=== PATIENT | female | born 1955 | race Caucasian/White ===

== ENCOUNTER 2016-07-27 17:47 | Emergency (ER) | payer BC ==
[~2016-07-27] VITALS: Ht 157.5 cm; Wt 54.4 kg
[2016-07-27] MEDS ORDERED: NKM (18:10)
[2016-07-27] MEDS ORDERED: CYCLOBENZAPRINE10 MG ORAL (18:21)
[2016-07-27] MEDS ORDERED: IBUPROFEN600 MG ORAL (18:21)
[2016-07-27 18:32] VITALS: BP 119/72
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
== END 2016-07-27 18:46 | disposition home or self-care (01) ==
LOC: EMR 18:25
DX: S16.1XXA Strain of muscle, fascia and tendon at neck level, initial encounter (principal); S00.03XA Contusion of scalp, initial encounter; V49.9XXA Car occupant (driver) (passenger) injured in unspecified traffic accident, initial encounter; Y93.9 Activity, unspecified; Y92.410 Unspecified street and highway as the place of occurrence of the external cause; Z88.6 Allergy status to analgesic agent
CPT/HCPCS: 99284